=== PATIENT | female | born 1980 | race Caucasian/White ===

== ENCOUNTER 2019-12-11 10:22 | Emergency (ER) | payer MEDICARE, MEDICAID ==
[~2019-12-11] VITALS: Ht 167.6 cm; Wt 68.2 kg
[2019-12-11 13:49] VITALS: BP 138/92
== END 2019-12-11 13:55 | disposition home or self-care (01) ==
LOC: EMS 10:22
DX: S90.32XA Contusion of left foot, initial encounter (principal); Z98.890 Other specified postprocedural states; Z91.040 Latex allergy status; Z88.8 Allergy status to other drugs, medicaments and biological substances; Z88.5 Allergy status to narcotic agent; X50.9XXA Other and unspecified overexertion or strenuous movements or postures, initial encounter; Y93.01 Activity, walking, marching and hiking; Y92.488 Other paved roadways as the place of occurrence of the external cause; Y99.8 Other external cause status

== ENCOUNTER 2019-12-26 19:54 | Emergency (ER) | payer MEDICARE, MEDICAID ==
[~2019-12-26] VITALS: Ht 165.1 cm; Wt 72.7 kg
[2019-12-27 00:15] VITALS: BP 136/74
[2019-12-27] MEDS ORDERED: IBUPROFEN 800 MG TABLET PO ONE (00:15)
[2019-12-27] MEDS ORDERED: CLOTRIMAZOLE 1% 10 ML SOLUTION TP ONE (00:15)
== END 2019-12-27 00:43 | disposition home or self-care (01) ==
LOC: EMS 19:55
DX: G62.9 Polyneuropathy, unspecified (principal); B35.1 Tinea unguium; Z88.1 Allergy status to other antibiotic agents; Z88.8 Allergy status to other drugs, medicaments and biological substances; Z91.040 Latex allergy status